=== PATIENT | male | born 1950 | race Caucasian/White ===

== ENCOUNTER 2020-12-13 05:43 | Day surgery (SDC) | payer MEDICARE, MEDICAID ==
[~2020-12-13] VITALS: Ht 175.3 cm; Wt 107.9 kg
[2020-12-13] MEDS ORDERED: URSO500T9 PO (06:16)
[2020-12-13] MEDS ORDERED: CARV3.122 PO (06:16)
[2020-12-13] MEDS ORDERED: CHLORHEXIDINE 15 ML UDC PO ONE (06:30)
[2020-12-13] MEDS ORDERED: LACTATED RINGERS 1,000 ML IV SCH ×2 (06:30)
[2020-12-13 06:39] VITALS: BP 156/83
[2020-12-13 06:39] LABS: BASOPHILS % (AUTO) 1 % (0-1); EOSINOPHILS % (AUTO) 5 % (1-7); LYMPHOCYTES % (AUTO) 27 % (22-44); MEAN CORPUSCULAR HEMOGLOBIN 34.4 pg (27.5-34.5); MEAN CORPUSCULAR HGB CONC 34.8 g/dL (33.2-36.2); MEAN PLATELET VOLUME 8.9 fL (7.4-10.4); MONOCYTES % (AUTO) 9 % (2-9); NEUTROPHILS % (AUTO) 58 % (42-75); PLATELET COUNT 71 x10^3/uL (130-400); RED BLOOD COUNT 4.34 x10^6/uL (4.38-5.82); RED CELL DISTRIBUTION WIDTH 14.8 % (9.4-14.8)
[2020-12-13 06:51] LABS: INTERNATIONAL NORMALIZED RATIO 1.44 (0.93-1.1); PROTHROMBIN TIME 15.1 Seconds (9.6-11.5)
[2020-12-13 07:06] LABS: ANION GAP 5 mmol/L (5-15); CALCIUM 8.5 mg/dL (8.5-10.1); CHLORIDE 108 mmol/L (98-107)
[2020-12-13 07:10] LABS: ALANINE AMINOTRANSFERASE 32 U/L (12-78); ALKALINE PHOSPHATASE 169 U/L (45-117); BILIRUBIN,TOTAL 4.5 mg/dL (0.2-1.0); CREATININE 0.72 mg/dL (0.7-1.3)
[2020-12-13] MEDS ORDERED: SIMETHICONE DROPS 40 MG/0.6 ML BOTTLE ONE (08:01)
[2020-12-13] MEDS ORDERED: PROPOFOL 10 MG/ML, 20ML ONE (08:22)
[2020-12-13] MEDS ORDERED: OXYcodone 5 MG/5 ML ORAL.SOL UDC ONE (08:52)
[2020-12-13] MEDS ORDERED: FENTANYL PF 100 MCG/2ML ONE (08:52)
[2020-12-13] MEDS: FENTANYL PF 100 MCG/2ML IV PRN ×2 (08:53→09:00)
[2020-12-13] MEDS ORDERED: OXYcodone 5 MG/5 ML ORAL.SOL UDC PO PRN (09:00)
[2020-12-13] MEDS ORDERED: hydrALAzine 20 MG/ML, 1ML IV PRN (09:00)
[2020-12-13] MEDS ORDERED: PROMETHAZINE 25 MG/ML, 1ML IV PRN (09:00)
[2020-12-13] MEDS ORDERED: ALBUTEROL SULFATE 2.5 MG/3 ML NPPB PRN (09:00)
[2020-12-13] MEDS ORDERED: KETOROLAC 30 MG/1 ML IV PRN (09:00)
[2020-12-13] MEDS ORDERED: LABETALOL 5MG/ML, 20ML IV PRN (09:00)
[2020-12-13] MEDS ORDERED: MEPERIDINE/PF 25MG/0.5ML IVPush PRN (09:00)
[2020-12-13] MEDS ORDERED: DIAZEPAM 5 MG/ML, 2ML IVPush PRN (09:00)
[2020-12-13] MEDS ORDERED: ACETAMINOPHEN 325 MG TABLET PO PRN (09:00)
[2020-12-13] MEDS ORDERED: HYDROmorphone 1 MG/ML, 1ML INJ ONE (09:13)
[2020-12-13] MEDS: HYDROmorphone 2 MG/ML, 1ML IVPush PRN ×2 (09:15→09:25)
== END 2020-12-13 12:15 | disposition home or self-care (01) ==
LOC: OUT 05:43
PROVIDERS: ATTEND Internal Medicine Gastroenterology
DX: K74.60 Unspecified cirrhosis of liver (principal); I85.10 Secondary esophageal varices without bleeding; K76.6 Portal hypertension; K31.89 Other diseases of stomach and duodenum; K29.80 Duodenitis without bleeding; Z79.899 Other long term (current) drug therapy
CPT/HCPCS: 36415; 43244; 80053; 85025; 85610; 85730; 93005; J1170; J2704; J3010; J7120

== ENCOUNTER 2021-01-14 11:23 | Day surgery (SDC) | payer MEDICARE, MEDICAID ==
[~2021-01-14] VITALS: Ht 175.3 cm; Wt 106.6 kg
[~2021-01-14 11:23] MED LIST: CARV3.122 PO; URSO500T9 PO
[2021-01-14 12:21] VITALS: BP 159/89
[2021-01-14] MEDS ORDERED: CHLORHEXIDINE 15 ML UDC PO ONE (12:30)
[2021-01-14] MEDS: LACTATED RINGERS 1,000 ML IV SCH ×2 (12:42→12:51)
[2021-01-14] MEDS ORDERED: CHLORHEXIDINE 15 ML UDC ONE (12:47)
[2021-01-14] MEDS ORDERED: PROPOFOL 50 ML ONE (12:49)
[2021-01-14] MEDS ORDERED: MIDAZOLAM 1 MG/ML, 2ML ONE (12:49)
[2021-01-14] MEDS ORDERED: FENTANYL PF 100 MCG/2ML ONE ×2 (13:38→14:07)
[2021-01-14] MEDS: FENTANYL PF 100 MCG/2ML IV PRN ×4 (13:40→14:21)
[2021-01-14] MEDS ORDERED: OXYcodone 5 MG/5 ML ORAL.SOL UDC ONE (13:56)
[2021-01-14] MEDS ORDERED: ACETAMINOPHEN 650 MG/20.3 ML UDC ONE (13:56)
[2021-01-14] MEDS ORDERED: OXYcodone 5 MG/5 ML ORAL.SOL UDC PO PRN (14:00)
[2021-01-14] MEDS ORDERED: ACETAMINOPHEN 325 MG TABLET PO PRN (14:00)
== END 2021-01-14 15:15 | disposition home or self-care (01) ==
LOC: OUT 11:23
PROVIDERS: ATTEND Internal Medicine
DX: K74.60 Unspecified cirrhosis of liver (principal); I85.10 Secondary esophageal varices without bleeding; K76.6 Portal hypertension; K31.89 Other diseases of stomach and duodenum; K25.9 Gastric ulcer, unspecified as acute or chronic, without hemorrhage or perforation; I10 Essential (primary) hypertension; F41.9 Anxiety disorder, unspecified
CPT/HCPCS: 43244; J2250; J2704; J3010; J7120